=== PATIENT | female | born 1950 | race Caucasian/White ===

== ENCOUNTER 2023-04-24 13:16 | Emergency (ER) | payer BC ==
[~2023-04-24] VITALS: Ht 162.6 cm; Wt 72.6 kg
[2023-04-24] MEDS ORDERED: IBUPROFEN 600 MG TABLET PO ONE (14:30)
[2023-04-24] MEDS ORDERED: ACETAMINOPHEN ES 500 MG TABLET PO ONE (14:30)
[2023-04-24] MEDS ORDERED: ACETAMINOPHEN ES 500 MG TABLET ONE (15:29)
[2023-04-24] MEDS ORDERED: IBUPROFEN 600 MG TABLET ONE (15:29)
[2023-04-24] MEDS ORDERED: IBUP-1953 PO (15:44)
[2023-04-24 16:13] VITALS: BP 157/88; TEMP 98.6; O2SAT 98
== END 2023-04-24 16:14 | disposition home or self-care (01) ==
LOC: ER 13:16
DX: S16.1XXA Strain of muscle, fascia and tendon at neck level, initial encounter (principal); S80.02XA Contusion of left knee, initial encounter; S00.01XA Abrasion of scalp, initial encounter; I10 Essential (primary) hypertension; J44.9 Chronic obstructive pulmonary disease, unspecified; W18.39XA Other fall on same level, initial encounter; Y93.89 Activity, other specified; Y92.89 Other specified places as the place of occurrence of the external cause; Y99.8 Other external cause status
CPT/HCPCS: 70450-TC; 72125-TC; 73564-TC